=== PATIENT | male | born 1950 | race Caucasian/White ===

== ENCOUNTER 2016-08-11 10:07 | Emergency (ER) | payer OTHER ==
[~2016-08-11] VITALS: Ht 170.2 cm; Wt 72.6 kg
[~2016-08-11 10:07] MED LIST: ACTOS30 MG PO; ADVAIR DISKUS 51 DSK IH; FERROUS SULFAT325 MG PO; FOLATE1 MG PO; GLUCOPHAGE850 MG PO; PAXIL20 MG PO; PEGASYS180 MCG/0. MR; RESTORIL15 MG PO; RIBASPHERE200 M1 PO; RIBASPHERE400 MG PO
--- NOTE | 2016-08-11 10:15 | NUR ---
Patient ambulated to bed 03.
--- NOTE | 2016-08-11 10:20 | NUR ---
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 ER MD MADE AWARE OF PT STATUS.
[2016-08-11 10:28] VITALS: BP 137/85
--- NOTE | 2016-08-11 10:39 | NUR ---
AAO PT REFUSE TDAP, RECIEVE AT PCP OFFICE VISIT LAST SATURDAY PER PT AND AT BEDSIDE
--- NOTE | 2016-08-11 10:41 | NUR ---
XRAY at bedside.
[2016-08-11] MEDS ORDERED: NEOMYCIN/POLYMYXIN/BACITRACIN 0.9 GM/1 PKT TP ONE (10:56)
--- NOTE | 2016-08-11 11:16 | NUR ---
Patient to bed 05.
[2016-08-11 11:41] VITALS: BP 129/75
--- NOTE | 2016-08-11 11:41 | NUR ---
Patient discharged with v/s stable. Written and verbal after care instructions given and explained. Patient alert, oriented and verbalized understanding of instructions. Ambulatory with steady gait. All questions addressed prior to discharge. ID band removed. Patient advised to follow up with PMD. Rx of KEFLEX, TYLENOL given. Patient educated on indication of medication including possible reaction and side effects. Opportunity to ask questions provided and answered.
== END 2016-08-11 11:41 | disposition home or self-care (01) ==
LOC: MED 10:07
DX: S61.203A Unspecified open wound of left middle finger without damage to nail, initial encounter (principal); X58.XXXA Exposure to other specified factors, initial encounter; Y93.89 Activity, other specified; Y92.89 Other specified places as the place of occurrence of the external cause; Y99.8 Other external cause status
CPT/HCPCS: 36415; 73130; 80053; 82948; 85025; 99285; Q0092

== ENCOUNTER 2018-04-20 12:58 | Inpatient (IN) | payer OTHER ==
[~2018-04-20] VITALS: Ht 170.2 cm; Wt 90.7 kg
[~2018-04-20 12:58] MED LIST changes: -ACTOS30 MG PO; -ADVAIR DISKUS 51 DSK IH; +FERR325E14 PO; -FERROUS SULFAT325 MG PO; +FLUT1DSK4 IH; -FOLATE1 MG PO; +FOLI1TAB19 PO; -GLUCOPHAGE850 MG PO; +METF850T PO; +PAX20 PO; -PAXIL20 MG PO; -PEGASYS180 MCG/0. MR; +PIOG30TA PO; -RESTORIL15 MG PO; -RIBASPHERE200 M1 PO; -RIBASPHERE400 MG PO; +TEMA15CA24 PO; +[UNRECOGNIZED DRUG - CODE] MR; +[UNRECOGNIZED DRUG - CODE] PO; +[UNRECOGNIZED DRUG - CODE] PO
--- NOTE | 2018-04-20 13:03 | NUR ---
PT TAKEN TO BED 04 BY WHEELCHAIR.
[2018-04-20 13:05] VITALS: BP 115/83
--- NOTE | 2018-04-20 13:05 | NUR ---
67y/m accompanied by spouse c/o short of breath, fatigue with minimal activity, also pedal edema x 2 days, pt states recent dx pneumonia early this month, uncontrolled a-fib, other vss stable, bed down, low locked, bedrail up x 1, er md aware and notified of pt status, will cont to monitor pt hx; copd, dm, hep c rx; metformin, actos, tudorza, advair, albuterol, prednisone,
--- NOTE | 2018-04-20 13:24 | NUR ---
Patient being evaluated by physician at bedside.
[2018-04-20] MEDS ORDERED: ACLI400A2 IH (13:25)
[2018-04-20] MEDS ORDERED: ALBU0.0912 IH (13:25)
[2018-04-20] MEDS ORDERED: PRED5TAB7 PO (13:25)
[2018-04-20] MEDS ORDERED: NACL 0.9% 1,000 ML IV SCH (13:28)
[2018-04-20] MEDS ORDERED: AZITHROMYCIN 500 MG in DEXTROSE 5% 250 ML IV ONE (13:30)
[2018-04-20] MEDS ORDERED: methylPREDNISolone SS 125 MG/2 ML VIAL IVP ONE (13:30)
[2018-04-20] MEDS ORDERED: IPRATROPIUM 0.02% 0.5 MG/2.5 ML NEBU INH ONE (13:30)
[2018-04-20] MEDS ORDERED: MAG SULF 2000 MG/WATER PREMIX 50 ML IV ONE (13:30)
[2018-04-20] MEDS ORDERED: ALBUTEROL 0.083% 2.5 MG/3 ML NEBU INH ONE (13:30)
[2018-04-20] MEDS ORDERED: cefTRIAXone 1,000 MG in DEXT 5% MINI-BAG PLUS 50 ML IV ONE (13:30)
--- NOTE | 2018-04-20 13:45 | NUR ---
LAB AT BEDSIDE
[2018-04-20] MEDS ORDERED: cefTRIAXone 1,000 MG VIAL ONE (13:46)
[2018-04-20] MEDS ORDERED: AZITHROMYCIN 500 MG INJ VIAL IV ONE (13:46)
[2018-04-20 14:02] LABS: BASOPHILS % (AUTO) 0.5 % (0.0-2.0); EOSINOPHILS % (AUTO) 0.3 % (0.0-4.0); HEMATOCRIT 38.9 % (36-52); HEMOGLOBIN 12.1 g/dL (12.0-18.0); LYMPHOCYTES # (AUTO) 0.4 K/uL (2.0-11.5); LYMPHOCYTES % (AUTO) 7.4 % (20.5-51.1); MEAN CORPUSCULAR HEMOGLOBIN 28 pg (27-31); MEAN CORPUSCULAR HGB CONC 31 g/dL (33-37); MEAN CORPUSCULAR VOLUME 88.1 fL (80-94); MONOCYTES # (AUTO) 0.5 K/uL (0.8-1.0); MONOCYTES % (AUTO) 10.1 % (1.7-9.3); NEUTROPHILS % (AUTO) 81.7 % (42.2-75.2); PLATELET COUNT (AUTO) 264 K/uL (140-450); RED BLOOD CELL COUNT(AUTO) 4.41 MIL/uL (4.20-6.10); RED CELL DISTRIBUTION WIDTH 15.9 % (11.6-13.7)
--- NOTE | 2018-04-20 14:12 | NUR ---
RESP AT BEDSIDE
[2018-04-20 14:19] LABS: PROTHROMBIN TIME 12.3 secs (10.8-13.4)
[2018-04-20 14:25] LABS: ANION GAP 8.6 (8-16); CARBON DIOXIDE 31.6 mmol/L (21-32); CREATININE 0.8 mg/dL (0.7-1.3); POTASSIUM 4.2 mmol/L (3.5-5.1)
[2018-04-20 14:26] LABS: D-DIMER < 100 ng/ml (0-400)
[2018-04-20 14:30] LABS: ALBUMIN 3.4 g/dL (3.4-5.0); TOTAL BILIRUBIN 0.7 mg/dL (0.0-1.0)
[2018-04-20] MEDS ORDERED: DILTIAZEM 25 MG/5 ML VIAL IVP ONE ×2 (15:05→15:55)
[2018-04-20 16:57] LABS: APPEARANCE,URINE CLEAR (CLEAR); BILIRUBIN,URINE NEGATIVE (NEGATIVE); BLOOD, URINE NEGATIVE (NEGATIVE); COLOR,URINE YELLOW (YELLOW); LEUKOCYTE ESTERASE ,URINE NEGATIVE (NEGATIVE); NITRITE, URINE NEGATIVE (NEGATIVE); UGLUCOSE NEGATIVE (NEGATIVE)
[2018-04-20 16:58] LABS: RBC,URINE 0-5 (RARE) /HPF (0-5); WBC,URINE 0-5 (RARE) /HPF (0-5)
--- NOTE | 2018-04-20 18:20 | NUR ---
Patient will be admitted to care of DR. VERA. Admited to TELE FLOOR. Will go to room 105-B. Belongings list completed. Report to CONOR PARADA.
--- NOTE | 2018-04-20 18:50 | NUR ---
PT ARRIVED FROM ER IN [facility], TRANSFERRED TO BED WITH ASSIST, PT PLACED ON CIGARETTE MAKER, REPORT RECEIVED FROM STARCH CRAB ARAVIND, PT AWAKE ALERT, RESP EVEN SLIGHTLY LABORED, ON 2L NC, SKIN WARM DRY COLOR WNL, VITALS TAKEN, PT ORIENTED TO ROOM AND FLOOR, POC REVIEWED, AT BEDSIDE, CALL PENA WITHIN REACH, SIDE RAILS UP, BED LOCKED IN LOW POSITION, WILL CONTINUE TO [facility].
--- NOTE | 2018-04-20 19:15 | NUR ---
REPORT GIVEN TO CUSTOMER CONSULTING MANAGER NURSE MAKI PT IN STABLE CONDITION.
[2018-04-20 19:30] VITALS: BP 133/85
--- NOTE | 2018-04-20 19:30 | NUR ---
RECEIVED PT FROM KARMA RN PT UKRAINIAN SPEAKER AAOX4 ON BED REST , LABORED BREATHING ON TELEMETRY UNCONTROLLED AFIB HR 122 ON 02 2 LTS VIA NC SKIN IS INTACT , BILATERAL LE EDEMA 2+ HL ON RT FA GAUGE # 18 MRSA SWAB NARES PROTOCOL DONE AND SENT TO LAB RELATIVES AT BED SIDE INITIAL ASSESSMENT DONE
--- NOTE | 2018-04-20 22:00 | NUR ---
PT RESTING ON BED RELTIVES AT BED SIDE ON TELMETRY UNCONTROLLED AFIB
[2018-04-21] VITALS: BP 130/91
[2018-04-21] MEDS: DILTIAZEM 30 MG TAB PO SCH ×4 (00:26→19:30)
--- NOTE | 2018-04-21 01:00 | NUR ---
PT SLEEPING ON AND OFF UNCONTROLLED A FIB AND SOB TO LITTLE EXERTION
[2018-04-21] MEDS ORDERED: ALBUTEROL 0.083% 2.5 MG/3 ML NEBU INH PRN ×2 (02:00→09:15)
[2018-04-21] MEDS ORDERED: IPRATROPIUM 0.02% 0.5 MG/2.5 ML NEBU INH PRN ×2 (02:00→09:15)
[2018-04-21] MEDS ORDERED: DEXTROSE 50% 50 ML SYR IVP PRN (02:00)
[2018-04-21 04:00] VITALS: BP 129/70
--- NOTE | 2018-04-21 04:00 | NUR ---
SPONGE BATH GIVEN LINEN CHANGED ON TELEMETRY CONTROLLED AFIB AND PT VERBALIZED THAT AFTER BREATHING TX HE FEELS BETTER
[2018-04-21] MEDS: BLOOD GLUCOSE MONITORING 1 DEV DEV FS SCH ×4 (06:08→21:19)
--- NOTE | 2018-04-21 06:11 | NUR ---
BLOOD SUGAR TEST 129 PT STILL SOB TO LITTLE EXERTION, ON TELEMETRY CONTROLLER AFIB
[2018-04-21 06:27] LABS: HEMATOCRIT 40.4 % (36-52); HEMOGLOBIN 12.6 g/dL (12.0-18.0); LYMPHOCYTES # (AUTO) 0.2 K/uL (2.0-11.5); LYMPHOCYTES % (AUTO) 4.8 % (20.5-51.1); MEAN CORPUSCULAR HEMOGLOBIN 28 pg (27-31); MEAN CORPUSCULAR HGB CONC 31 g/dL (33-37); MONOCYTES # (AUTO) 0.1 K/uL (0.8-1.0); MONOCYTES % (AUTO) 1.6 % (1.7-9.3); NEUTROPHILS # (AUTO) 3.1 K/uL (1.8-7.7); NEUTROPHILS % (AUTO) 93.6 % (42.2-75.2); PLATELET COUNT (AUTO) 242 K/uL (140-450); RED BLOOD CELL COUNT(AUTO) 4.54 MIL/uL (4.20-6.10); RED CELL DISTRIBUTION WIDTH 15.8 % (11.6-13.7); WHITE BLOOD COUNT (AUTO) 3.3 K/uL (4.8-10.8)
--- NOTE | 2018-04-21 06:36 | NUR ---
PT WILL BE ENDORSED TO DAY SHIFT NURSE FOR CONTINUITY OF CARE
[2018-04-21 06:53] LABS: ANION GAP 9.9 (8-16); CARBON DIOXIDE 29.9 mmol/L (21-32); CREATININE 0.7 mg/dL (0.7-1.3); POTASSIUM 4.8 mmol/L (3.5-5.1)
--- NOTE | 2018-04-21 07:30 | NUR ---
RECEIVED PT ON BED AAOX4. NO SOB NOTED, ON OXYGEN THERAPY AT 2PM VIA NASAL CANNULA WITH SATS OF 92%. NO C/O PAIN AT THIS TIME. IV TO RT HAND PATENT AND INTACT. CHEST, DIMINISHED AIR ENTRY TO THE BASES, ABDOMEN SOFT, BOWEL SOUNDS PRESENT. + 2 EDEMA NOTED ON BLE. SCD'S IN PLACE. INSTRUCTED PT TO CALL FOR ASSISTANCE, CALL LIGHT WITHIN REACH, PT VERBALIZED UNDERSTANDING.
[2018-04-21 08:00] VITALS: BP 115/80
--- NOTE | 2018-04-21 08:05 | NUR ---
PATIENT HAS BEEN SCREENED AND CATEGORIZED MODERATE NUTRITION RISK. PATIENT WILL BE SEEN WITHIN 3-5 DAYS OF ADMISSION. 04/23/18[address]
[2018-04-21] MEDS ORDERED: ONDANSETRON 4 MG/2 ML VIAL IVP PRN (08:30)
[2018-04-21] MEDS ORDERED: guaiFENesin 20 MG/ML UDC PO PRN (08:30)
[2018-04-21] MEDS ORDERED: DILTIAZEM 25 MG/5 ML VIAL IVP PRN (08:30)
[2018-04-21] MEDS ORDERED: MORPHINE SULFATE 2 MG/ML SYR IVP PRN (08:30)
[2018-04-21] MEDS ORDERED: ACETAMINOPHEN 325 MG TAB PO PRN (08:30)
[2018-04-21] MEDS: METOPROLOL 25 MG TAB PO SCH ×2 (09:08→21:19)
[2018-04-21] MEDS: PANTOPRAZOLE 40 MG INJ VIAL IVP SCH (09:09)
[2018-04-21] MEDS: ENOXAPARIN 30 MG/0.3 ML SYR SUBQ SCH (09:10)
[2018-04-21] MEDS: AZITHROMYCIN 500 MG in DEXTROSE 5% 250 ML IV SCH (09:27)
[2018-04-21] MEDS ORDERED: FUROSEMIDE 40 MG/4 ML VIAL IVP SCH ×2 (11:12→17:00)
[2018-04-21 12:00] VITALS: BP 112/81
[2018-04-21] MEDS: INSULIN LISPRO SLIDING SCALE 100 UNITS/ML VIAL SUBQ PRN (12:50)
[2018-04-21] MEDS: ALBUTEROL 0.083% 2.5 MG/3 ML NEBU IH SCH ×2 (12:58→19:20)
[2018-04-21] MEDS: IPRATROPIUM 0.02% 0.5 MG/2.5 ML NEBU IH SCH ×2 (12:58→19:20)
[2018-04-21] MEDS ORDERED: methylPREDNISolone SS 125 MG/2 ML VIAL IVP SCH (13:00)
--- NOTE | 2018-04-21 19:10 | NUR ---
RECEIVED REPORT FROM CONOR GOINS FOR CONTINUITY OF CARE. PT A/OX4 ON 2L O2 VIA NASAL CANNULA, ARGENTINE SPEAKING. PT IS ABLE TO MAKE NEEDS KNOWN, ABLE TO FOLLOW COMMANDS. PT AMBULATES WITH ASSIST AND SKIN IS INTACT. PT HAS A 20G IV TO RIGHT HAND, ASYMPTOMATIC AND INTACT. VITAL SIGNS WITHIN NORMAL LIMITS. PT STABLE, DENIES HAVING ANY PAIN, NO SIGNS OF DISTRESS NOTED AT THIS TIME. PT POSITIONED FOR COMFORT. BED IN LOWEST POSITION, BED ALARM ON. WILL CONTINUE TO MONITOR.
[2018-04-21] MEDS: FUROSEMIDE 40 MG/4 ML VIAL IVP SCH (19:30)
[2018-04-21 20:00] VITALS: BP 119/56
--- NOTE | 2018-04-21 20:57 | NUR ---
CHECKED ON PT. PT WAS USING RESTROOM. CAME BACK. PT SAID HE FEELS MUCH BETTER. HHN TX NOT GIVEN. PT AT BEDSIDE. NO SOB OR DISTRESS NOTED. WILL CONTINUE TO MONITOR.
--- NOTE | 2018-04-21 21:20 | NUR ---
ADMINISTERED SCHEDULED MEDICATIONS, PT TOLERATED WELL. NO INSULIN COVERAGE NEEDED FOR BLOOD GLUCOSE 133. WILL CONTINUE TO MONITOR.
[2018-04-22] VITALS (7 sets, daily range): BP systolic 96–119; BP diastolic 62–86
--- NOTE | 2018-04-22 | NUR ---
VITAL SIGNS WITHIN NORMAL LIMITS. PT STABLE, DENIES HAVING ANY PAIN, NO SIGNS OF DISTRESS NOTED AT THIS TIME. PT POSITIONED FOR COMFORT. BED IN LOWEST POSITION, BED ALARM ON. WILL CONTINUE TO MONITOR.
[2018-04-22] MEDS: IPRATROPIUM 0.02% 0.5 MG/2.5 ML NEBU IH SCH ×4 (01:36→19:06)
[2018-04-22] MEDS: ALBUTEROL 0.083% 2.5 MG/3 ML NEBU IH SCH ×4 (01:36→19:06)
--- NOTE | 2018-04-22 02:15 | NUR ---
NO SIGNS OF DISTRESS NOTED AT THIS TIME. PT POSITIONED FOR COMFORT. BED IN LOWEST POSITION, BED ALARM ON. WILL CONTINUE TO MONITOR.
[2018-04-22 06:05] LABS: BASOPHILS % (AUTO) 0.1 % (0.0-2.0); HEMATOCRIT 38.3 % (36-52); HEMOGLOBIN 11.9 g/dL (12.0-18.0); LYMPHOCYTES # (AUTO) 0.5 K/uL (2.0-11.5); LYMPHOCYTES % (AUTO) 5.6 % (20.5-51.1); MEAN CORPUSCULAR HEMOGLOBIN 27 pg (27-31); MEAN CORPUSCULAR HGB CONC 31 g/dL (33-37); MEAN CORPUSCULAR VOLUME 87.9 fL (80-94); MONOCYTES # (AUTO) 0.6 K/uL (0.8-1.0); MONOCYTES % (AUTO) 7.2 % (1.7-9.3); NEUTROPHILS # (AUTO) 7.3 K/uL (1.8-7.7); NEUTROPHILS % (AUTO) 87.1 % (42.2-75.2); PLATELET COUNT (AUTO) 239 K/uL (140-450); RED BLOOD CELL COUNT(AUTO) 4.36 MIL/uL (4.20-6.10); RED CELL DISTRIBUTION WIDTH 15.9 % (11.6-13.7); WHITE BLOOD COUNT (AUTO) 8.4 K/uL (4.8-10.8)
[2018-04-22] MEDS: DILTIAZEM 30 MG TAB PO SCH ×5 (06:13→23:35)
[2018-04-22] MEDS: BLOOD GLUCOSE MONITORING 1 DEV DEV FS SCH ×4 (06:13→21:06)
--- NOTE | 2018-04-22 06:13 | NUR ---
PT BP IS NOW 112/72 AND HR 108-124. ADMINISTERED SCHEDULED CARDIZEM ORDERED. PT TOLERATED WELL. PT BLOOD SUGAR IS 101, NO INSULIN COVERAGE NEEDED. Addendum: 04/22/18 at 0615 by Julieth Rodriguez RN PT TOLERATED WELL.
[2018-04-22 06:51] LABS: ALBUMIN 3.7 g/dL (3.4-5.0); CREATININE 0.8 mg/dL (0.7-1.3); TOTAL BILIRUBIN 0.6 mg/dL (0.0-1.0)
[2018-04-22 06:55] LABS: ANION GAP 3.9 (8-16); CARBON DIOXIDE 37.1 mmol/L (21-32)
--- NOTE | 2018-04-22 07:16 | NUR ---
ENDORSED PT TO DAY SHIFT CONOR CLAYTON FOR CONTINUITY OF CARE. PT IN STABLE CONDITION. Addendum: 04/22/18 at 0716 by Julieth Rodriguez RN DISREGARD. WRONG NOTE.
--- NOTE | 2018-04-22 07:17 | NUR ---
ENDORSED PT TO DAY SHIFT RN BRISEIDA FOR CONTINUITY OF CARE. PT IN STABLE CONDITION.
--- NOTE | 2018-04-22 07:30 | NUR ---
RECEIVED PT ON BED AAOX4. NO SOB NOTED, ON OXYGEN THERAPY AT 2PM VIA NASAL CANNULA WITH SATS OF 93%. NO C/O PAIN AT THIS TIME. IV TO RT HAND PATENT AND INTACT. CHEST, DIMINISHED AIR ENTRY TO THE BASES. ABDOMEN SOFT, BOWEL SOUNDS PRESENT. + 2 EDEMA NOTED ON BLE. SCD'S IN PLACE. INSTRUCTED PT TO CALL FOR ASSISTANCE, CALL LIGHT WITHIN REACH, PT VERBALIZED UNDERSTANDING. AT THE BEDSIDE VISITING.
[2018-04-22] MEDS: METOPROLOL 25 MG TAB PO SCH ×2 (09:52→20:50)
[2018-04-22] MEDS: AZITHROMYCIN 500 MG in DEXTROSE 5% 250 ML IV SCH (09:52)
[2018-04-22] MEDS: FUROSEMIDE 40 MG/4 ML VIAL IVP SCH ×2 (09:52→20:49)
[2018-04-22] MEDS: PANTOPRAZOLE 40 MG INJ VIAL IVP SCH (09:53)
[2018-04-22] MEDS: ENOXAPARIN 30 MG/0.3 ML SYR SUBQ SCH (09:54)
--- NOTE | 2018-04-22 12:55 | NUR ---
ECHOCARDIOGRAM ON GOING AT THE BEDSIDE.
--- NOTE | 2018-04-22 13:56 | NUR ---
CM NOTE PER BARR[facility] OF [facility] (PCP) PH# [phone], PATIENT IS SCHEDULED FOR OUTPATIENT FOLLOW UP ON APRIL 28, 2018 3:30 PM AT [address]IC [id number] [facility], [place] [address]. I GAVE A COPY OF PATIENT'S OUTPATIENT FOLLOW UP APPOINTMENT TO PATIENT WITH PATIENT'S AMPARO QUINTANILLA.
--- NOTE | 2018-04-22 16:05 | NUR ---
PT AWAKE, TALKING TO AT THE BEDSIDE. NO SOB NOTED. NO C/O PAIN AT THIS TIME.
--- NOTE | 2018-04-22 19:09 | NUR ---
PT AWAKE, NO SOB NOTED. ON HIGH BACK REST. NO C/O PAIN AT THIS TIME. WILL ENDORSE TO NEXT SHIFT NURSE FOR CONTINUITY OF CARE.
--- NOTE | 2018-04-22 19:20 | NUR ---
RECEIVED FROM AM RN IN BED WITH SPOUSE AT BEDSIDE. BREATHING TREATMENT ON GOING. NO COMPLAINTS OF ANY PAIN AT THIS TIME. CALL LIGHT WITH IN REACH AND EXPLAINED CARE PLANS FOR THE NIGHT. VITAL SIGNS WNL.
--- NOTE | 2018-04-22 21:31 | NUR ---
BLOOD SUGAR CHECK PER FINGERSTICK 119. NO REGULAR INSULIN COVERAGE. A/O X 4. ABLE TO VERBALIZE SIMPLE NEEDS.
--- NOTE | 2018-04-22 23:36 | NUR ---
JEISON HELD AT THIS TIME RT BP 96/69. SLEEPING. WOKE UP EASILY WHEN TOUCHED. CALL LIGHT WITH IN REACH. TELEMETRY MONITORING.
[2018-04-23] MEDS: ALBUTEROL 0.083% 2.5 MG/3 ML NEBU IH SCH ×3 (00:28→13:47)
[2018-04-23] MEDS: IPRATROPIUM 0.02% 0.5 MG/2.5 ML NEBU IH SCH ×3 (00:28→13:47)
--- NOTE | 2018-04-23 03:36 | NUR ---
PT. SLEEPING WELL. NO RESTLESSNESS. CALL LIGHT WITH IN REACH. TELEMETRY MONITORING.
[2018-04-23 04:39] VITALS: BP 117/83
[2018-04-23] MEDS: DILTIAZEM 30 MG TAB PO SCH ×2 (05:27→12:36)
[2018-04-23] MEDS: BLOOD GLUCOSE MONITORING 1 DEV DEV FS SCH ×2 (05:31→11:30)
[2018-04-23] MEDS: FUROSEMIDE 40 MG/4 ML VIAL IVP SCH ×2 (05:31→12:37)
[2018-04-23 06:08] LABS: BASOPHILS % (AUTO) 0.3 % (0.0-2.0); EOSINOPHILS % (AUTO) 0.2 % (0.0-4.0); LYMPHOCYTES # (AUTO) 0.5 K/uL (2.0-11.5); MONOCYTES # (AUTO) 0.6 K/uL (0.8-1.0)
[2018-04-23 06:26] LABS: ALBUMIN 3.5 g/dL (3.4-5.0); CREATININE 0.8 mg/dL (0.7-1.3); TOTAL BILIRUBIN 0.8 mg/dL (0.0-1.0)
[2018-04-23 06:28] LABS: HEMATOCRIT 38.4 % (36-52); HEMOGLOBIN 12.1 g/dL (12.0-18.0); LYMPHOCYTES % (AUTO) 8.9 % (20.5-51.1); MEAN CORPUSCULAR HEMOGLOBIN 28 pg (27-31); MEAN CORPUSCULAR HGB CONC 32 g/dL (33-37); MEAN CORPUSCULAR VOLUME 87.5 fL (80-94); MONOCYTES % (AUTO) 10.3 % (1.7-9.3); NEUTROPHILS # (AUTO) 4.7 K/uL (1.8-7.7); NEUTROPHILS % (AUTO) 80.3 % (42.2-75.2); PLATELET COUNT (AUTO) 203 K/uL (140-450); RED BLOOD CELL COUNT(AUTO) 4.39 MIL/uL (4.20-6.10); RED CELL DISTRIBUTION WIDTH 15.4 % (11.6-13.7); WHITE BLOOD COUNT (AUTO) 5.8 K/uL (4.8-10.8)
[2018-04-23 06:33] LABS: POTASSIUM 4.6 mmol/L (3.5-5.1)
[2018-04-23 06:42] LABS: ANION GAP 1.7 (8-16); CARBON DIOXIDE 39.9 mmol/L (21-32)
--- NOTE | 2018-04-23 06:49 | NUR ---
PT. SLEPT WELL THIS SHIFT. NO COMPLAINTS DONE. TELEMETRY MONITORING. SEEN BY Antonia HARRIS /TICKETER EARLIER IN THE SHIFT. BLOOD SUGAR WNL FOR AM . NO REGULAR INSULIN COVERAGE.
--- NOTE | 2018-04-23 07:15 | NUR ---
RECEIVED PT REPORT FROM PROFESSOR OF EXERCISE SCIENCE NURSE. PT IS AWAKE AND ALERT IN BED, NO S/S OF ACUTE DISTRESS OR SOB. IS AT BEDSIDE. PT IS ON 2L O2 NC, SKIN IS INTACT. FALL PRECAUTIONS IN PLACE. IV SITE NOTED ON RFA, 18 G, SALINE LOCKED. CALL LIGHT WITHIN REACH. WILL CONT TO MONITOR PT.
[2018-04-23 08:00] VITALS: BP 118/64
[2018-04-23] MEDS: PANTOPRAZOLE 40 MG INJ VIAL IVP SCH (09:10)
[2018-04-23] MEDS: AZITHROMYCIN 500 MG in DEXTROSE 5% 250 ML IV SCH (09:10)
[2018-04-23] MEDS: METOPROLOL 25 MG TAB PO SCH (09:10)
[2018-04-23] MEDS: ENOXAPARIN 30 MG/0.3 ML SYR SUBQ SCH (09:12)
[2018-04-23 12:00] VITALS: BP 122/74
[2018-04-23] MEDS: INSULIN LISPRO SLIDING SCALE 100 UNITS/ML VIAL SUBQ PRN (12:53)
--- NOTE | 2018-04-23 13:00 | NUR ---
PT SEEN BY DR CAMARENA
[2018-04-23] MEDS ORDERED: FURO-570 PO (13:06)
[2018-04-23] MEDS ORDERED: METO25TE2 PO (13:06)
--- NOTE | 2018-04-23 13:31 | NUR ---
KANE NOTE FAXED ORDER FOR HOME HEALTH TO [facility]. PER KANE BENSON # [phone] SHE WILL ARRANGE PATIENT'S HOME HEALTH.
--- NOTE | 2018-04-23 15:05 | NUR ---
PT HAS DISCHARGED. DISCHARGE INSTRUCTIONS AND PRESCRIPTION GIVEN. DC DOCUMENTS SIGNED. PT AND VERBALIZED UNDERSTANDING OF DC INSTRUCTIONS. IV AND WRIST BANDS REMOVED. PT LEFT WITH ALL HIS BELONGINGS IN STABLE CONDITION.
[2018-04-24] MEDS ORDERED: METOPROLOL SUCCINATE 50 MG TABER PO SCH (09:00)
== END 2018-04-23 15:00 | disposition home health service (06) | DRG 291 ==
LOC: MED 12:58 → MTU 18:10
PROVIDERS: ADMIT Internal Medicine Pulmonary Disease; ATTEND Hospitalist
DX: I11.0 Hypertensive heart disease with heart failure (principal); I50.21 Acute systolic (congestive) heart failure; I48.91 Unspecified atrial fibrillation; B19.20 Unspecified viral hepatitis C without hepatic coma; E11.9 Type 2 diabetes mellitus without complications; I27.20 Pulmonary hypertension, unspecified; Z87.01 Personal history of pneumonia (recurrent); Z87.891 Personal history of nicotine dependence; J44.9 Chronic obstructive pulmonary disease, unspecified
CPT/HCPCS: 36415; 36600; 71045; 80048; 80053; 81001; 82550; 82553; 82803; 82948; 83605; 83735; 83874; 83880; 84484; 85025; 85379; 85610; 85730; 87040; 87081; 87086; 93005; 93970; 94640; 96365; 96366; 96367; 96375; 99285; C9113; J0456; J0696; J1650; J1815; J1940; J2930; J3475; J3490; J7060; J7613; J7644; Q0092

== ENCOUNTER 2019-03-21 09:24 | Emergency (ER) | payer OTHER ==
[~2019-03-21] VITALS: Ht 170.2 cm; Wt 76.2 kg
[~2019-03-21 09:24] MED LIST changes: +ALBU0.0912 IH; -FERR325E14 PO; -FOLI1TAB19 PO; +FURO-570 PO; +METO25TE2 PO; -PAX20 PO; +PRED5TAB7 PO; -TEMA15CA24 PO; -[UNRECOGNIZED DRUG - CODE] MR; -[UNRECOGNIZED DRUG - CODE] PO; -[UNRECOGNIZED DRUG - CODE] PO
--- NOTE | 2019-03-21 09:29 | NUR ---
Patient transferred to bed 11 via wheelchair by tech. RN evaluating patient at bedside.
[2019-03-21 09:33] VITALS: BP 148/93
--- NOTE | 2019-03-21 09:37 | NUR ---
68 Y/O M C/O INCREASED FATIGUE WITH MINIMAL ACTIVITY. PT STATES HE HAS BEGUN FEELING SICK/SOB AFTER FINISHING HEP C TREATMENT IN JULY. PT STATES HE FEELS A BREATHING TREATMENT. PT HAS HAD INCREASED SWELLING, BILATERAL LEGS. LEGS HAVE MILD SWELLING, NO PAIN. NKA MEDHX: COPD, DM
--- NOTE | 2019-03-21 09:47 | NUR ---
X-RAY AT BEDSIDE PERFOMRING ORDERED TESTS.
--- NOTE | 2019-03-21 09:48 | NUR ---
MD AT BEDSIDE EVALUATING PATIENT.
[2019-03-21] MEDS ORDERED: DILTIAZEM 25 MG/5 ML VIAL IVP ONE (09:50)
--- NOTE | 2019-03-21 10:45 | NUR ---
LAB AT BEDSIDE DRAWING ORDERED LABS.
[2019-03-21 10:55] LABS: BASOPHILS % (AUTO) 0.6 % (0.0-2.0); EOSINOPHILS % (AUTO) 0.6 % (0.0-4.0); HEMATOCRIT 39.5 % (36-52); HEMOGLOBIN 12.3 g/dL (12.0-18.0); LYMPHOCYTES # (AUTO) 0.6 K/uL (2.0-11.5); LYMPHOCYTES % (AUTO) 8.3 % (20.5-51.1); MEAN CORPUSCULAR HEMOGLOBIN 28 pg (27-31); MEAN CORPUSCULAR HGB CONC 31 g/dL (33-37); MEAN CORPUSCULAR VOLUME 89.2 fL (80-94); MONOCYTES # (AUTO) 0.6 K/uL (0.8-1.0); MONOCYTES % (AUTO) 9.2 % (1.7-9.3); NEUTROPHILS # (AUTO) 5.4 K/uL (1.8-7.7); NEUTROPHILS % (AUTO) 81.3 % (42.2-75.2); PLATELET COUNT (AUTO) 200 K/uL (140-450); RED BLOOD CELL COUNT(AUTO) 4.42 MIL/uL (4.20-6.10); RED CELL DISTRIBUTION WIDTH 16.1 % (11.6-13.7); WHITE BLOOD COUNT (AUTO) 6.7 K/uL (4.8-10.8)
--- NOTE | 2019-03-21 11:04 | NUR ---
PT RESTING COMFORTABLY, GAVE BLANKET, INFORMED PT WE ARE WAITING FOR TEST RESULTS.
[2019-03-21 11:11] LABS: APPEARANCE,URINE CLEAR (CLEAR); BILIRUBIN,URINE NEGATIVE (NEGATIVE); BLOOD, URINE NEGATIVE (NEGATIVE); COLOR,URINE YELLOW (YELLOW); LEUKOCYTE ESTERASE ,URINE NEGATIVE (NEGATIVE); NITRITE, URINE NEGATIVE (NEGATIVE); PH,URINE 5.5 (5.0-9.0); UGLUCOSE NEGATIVE (NEGATIVE)
[2019-03-21 11:12] LABS: ALBUMIN 3.6 g/dL (3.4-5.0); ANION GAP 8.9 (8-16); CARBON DIOXIDE 35.5 mmol/L (21-32); CREATININE 0.8 mg/dL (0.7-1.3); POTASSIUM 4.4 mmol/L (3.5-5.1); TOTAL BILIRUBIN 1.1 mg/dL (0.0-1.0)
[2019-03-21 11:20] LABS: RBC,URINE NONE SEEN /HPF (0-5); WBC,URINE NONE SEEN /HPF (0-5)
[2019-03-21] MEDS ORDERED: ALBUTEROL SULFATE/IPRATROPIU 3 ML SOL IH ONE (11:35)
[2019-03-21] MEDS ORDERED: FUROSEMIDE 40 MG/4 ML VIAL IVP ONE (11:35)
--- NOTE | 2019-03-21 11:37 | NUR ---
PT VS STABLE, RESTING COMFORTABLY. AT BEDSIDE.
--- NOTE | 2019-03-21 11:51 | NUR ---
RT AT BEDSIDE ADMINISTERING ORDERED BREATHING TREATMENT.
[2019-03-21] MEDS ORDERED: METOPROLOL 5 MG/5 ML VIAL IVP ONE (13:00)
[2019-03-21 14:02] VITALS: BP 134/76
--- NOTE | 2019-03-21 14:02 | NUR ---
Patient discharged with v/s stable. Written and verbal after care instructions given and explained. Patient alert, oriented and verbalized understanding of instructions. Ambulatory with steady gait. All questions addressed prior to discharge. ID band removed. Patient advised to follow up with PMD. Rx of lasix given. Patient educated on indication of medication including possible reaction and side effects. Opportunity to ask questions provided and answered.
== END 2019-03-21 14:02 | disposition home or self-care (01) ==
LOC: MED 09:24
DX: I48.91 Unspecified atrial fibrillation (principal); R06.02 Shortness of breath; R53.1 Weakness; J44.9 Chronic obstructive pulmonary disease, unspecified; E11.9 Type 2 diabetes mellitus without complications; Z79.84 Long term (current) use of oral hypoglycemic drugs; Z79.899 Other long term (current) drug therapy
CPT/HCPCS: 36415; 71045; 80053; 81001; 83880; 84484; 85025; 93005; 94640; 96374; 96375; 99284; J1940; J3490; J7620; Q0092

== ENCOUNTER 2023-03-03 14:57 | Emergency (ER) | payer OTHER ==
[~2023-03-03] VITALS: Ht 170.2 cm; Wt 71.7 kg
[~2023-03-03 14:57] MED LIST changes: +METF-713 PO; -METF850T PO; -PIOG30TA PO; +[UNRECOGNIZED DRUG - CODE] PO
[2023-03-03 15:09] VITALS: BP 141/98; PULSE 132; RESP 18; TEMP 97.3; O2SAT 77
[2023-03-03] MEDS ORDERED: cefTRIAXone 1,000 MG in DEXT 5% MINI-BAG PLUS 50 ML IV ONE (15:25)
[2023-03-03 15:35] VITALS: O2SAT 88
[2023-03-03] MEDS ORDERED: ALBUTEROL 0.083% 2.5 MG/3 ML NEBU INH ONE (15:35)
[2023-03-03] MEDS ORDERED: ALBUTEROL SULFATE/IPRATROPIU 3 ML SOL IH ONE (15:35)
[2023-03-03] MEDS ORDERED: methylPREDNISolone SS 125 MG/2 ML VIAL IVP ONE (15:35)
[2023-03-03 15:46] VITALS: PULSE 91; RESP 22; O2SAT 88
[2023-03-03] MEDS ORDERED: cefTRIAXone 1,000 MG VIAL ONE (15:50)
[2023-03-03 15:55] LABS: BASOPHILS % (AUTO) 0.5 % (0.0-2.0); EOSINOPHILS % (AUTO) 0.2 % (0.0-4.0); HEMATOCRIT 41.6 % (36-52); HEMOGLOBIN 13.3 g/dL (12.0-18.0); LYMPHOCYTES # (AUTO) 0.6 K/uL (2.0-11.5); MEAN CORPUSCULAR HEMOGLOBIN 27 pg (27-31); MEAN CORPUSCULAR HGB CONC 32 g/dL (33-37); MEAN CORPUSCULAR VOLUME 85.1 fL (80-94); MONOCYTES # (AUTO) 0.5 K/uL (0.8-1.0); MONOCYTES % (AUTO) 7.3 % (1.7-9.3); NEUTROPHILS # (AUTO) 5.6 K/uL (1.8-7.7); PLATELET COUNT (AUTO) 224 K/uL (140-450); RED BLOOD CELL COUNT(AUTO) 4.88 MIL/uL (4.20-6.10); RED CELL DISTRIBUTION WIDTH 18.7 % (11.6-13.7); WHITE BLOOD COUNT (AUTO) 6.8 K/uL (4.8-10.8)
[2023-03-03 16:09] LABS: ANION GAP 14.5 (8-16); CALCIUM 10.6 mg/dL (8.5-10.1); CARBON DIOXIDE 28.4 mmol/L (21-32); CHLORIDE 98 mmol/L (98-107); CREATININE 1.6 mg/dL (0.6-1.3); GLUCOSE 170 mg/dL (74-106); POTASSIUM 4.9 mmol/L (3.5-5.1); SODIUM SERUM 136 mmol/L (136-145); UREA NITROGEN, BLOOD 40 mg/dL (7-18)
[2023-03-03] MEDS ORDERED: ALEN70TA85 PO (16:22)
[2023-03-03] MEDS ORDERED: FLUT1BLS15 IH (16:22)
[2023-03-03] MEDS ORDERED: RIVA20TA PO (16:22)
[2023-03-03 16:34] LABS: FLU A ANTIGEN negative (NEGATIVE); FLU B ANTIGEN negative (NEGATIVE)
[2023-03-03 17:36] VITALS: O2SAT 92
[2023-03-03 19:16] VITALS: BP 137/64; PULSE 82; RESP 22; TEMP 98.1; O2SAT 92
== END 2023-03-03 21:46 | disposition short-term general hospital (02) ==
LOC: MED 14:57
DX: J44.1 Chronic obstructive pulmonary disease with (acute) exacerbation (principal); Z20.822 Contact with and (suspected) exposure to COVID-19; E11.9 Type 2 diabetes mellitus without complications; J45.909 Unspecified asthma, uncomplicated; R09.02 Hypoxemia; Z79.899 Other long term (current) drug therapy
CPT/HCPCS: 36415; 71045; 80048; 83605; 83880; 84484; 85025; 87040; 87426; 87804; 93005; 94640; 96365; 96375; 99285; J0696; J2930; J7613; Q0092